=== PATIENT | female | born 1970 | race Hispanic/Latino ===

== ENCOUNTER 2020-08-06 14:49 | Inpatient (IN) ==
--- NOTE | 2020-08-06 15:49 | XRay Report ---
INDICATION: fever cough TECHNIQUE: AP portable semiupright chest x-ray COMPARISON: None FINDINGS: Lungs:There are bilateral patchy infiltrates. Findings are nonspecific but atypical pneumonia including Covid should be considered. No parenchymal consolidation. Heart, vascular:Mild cardiac enlargement. No evidence for congestive heart failure Mediastinum, clive:No mediastinal widening. No hilar mass Pleura:No pleural fluid. No pleural-based mass or calcification Skeletal:Negative. IMPRESSION: 1. Bilateral patchy interstitial infiltrates consistent with pneumonia 2. No parenchymal consolidation or evidence for pleural fluid Interpreted and Authenticated by: Manan Garcia 08/06/20
[2020-08-06] MEDS ORDERED: 0.9 % SODIUM CHLORIDE 500 ML IV ONE (15:51)
[2020-08-06] MEDS ORDERED: AZITHROMYCIN 500 MG in DEXTROSE 5% IN WATER 250 ML IV ONE (16:03)
--- NOTE | 2020-08-06 16:03 | Emergency Department Note ---
HPI General Chief complaint: Cold/Flu Symptoms Stated complaint: cough / SOB Time Seen by Provider: 08/06/20 15:21 Source: patient Mode of arrival: ambulatory Limitations: language barrier History of Present Illness HPI Narrative: Narrative: 60-year-old female been sick for the last 10 days with cough congestion fever. Now worsening trouble breathing. No nausea vomiting diarrhea. Denies Covid exposure but she is hypoxic now She speaks only Urdu but her is here and he translates for her Related Data Home Medications Medication Instructions Recorded Confirmed No Known Home Meds 08/06/20 08/06/20 Allergies Allergy/AdvReac Type Severity Reaction Status Date / Time No Known Drug Allergies Allergy Unverified 08/06/20 14:50 Review of Systems ROS ROS Narrative: Narrative: All systems ED: reviewed and negative except as stated. [facility] Narrative Patient History Narrative: Narrative: Medical/Surgical/Family History All Active Problems (Updated 08/06/20 @ 20:06 by Srinivas Teixeira MD) Pneumonia due to 2019 novel coronavirus (Acute) Respiratory failure with hypoxia (Acute) Surgical History (Updated 08/06/20 @ 20:02 by Srinivas Teixeira MD) History of cholecystectomy (Acute) Social History Smoking Status: Never smoker Exam Narrative Narrative: Narrative: Obese female some respiratory distress but she is doing well on nasal cannula oxygen. Normocephalic atraumatic. Conjunctive are clear sclerae white nonicteric. Oropharynx pink and moist. No nasal discharge. Neck is supple without lymphadenopathy or thyromegaly. Heart is regular rate and rhythm no murmur appreciated. Lungs with coarse sounds bilaterally but secondary to body habitus I am unable to hear significant rales. She is mildly tachypneic with talking. Currently febrile. Abdomen soft nontender nondistended. No pedal edema General Limitations: language barrier Course Vital Signs Vital signs: Vital Signs Temperature 101.0 F H 08/06/20 14:51 Pulse Rate 86 08/06/20 14:51 Respiratory Rate 14 08/06/20 14:51 Blood Pressure 128/75 08/06/20 14:51 Pulse Oximetry (%) 82 L 08/06/20 14:51 Temperature 97.7 F 08/06/20 18:24 Pulse Rate 80 08/06/20 18:16 Respiratory Rate 20 08/06/20 18:16 Blood Pressure 112/75 08/06/20 18:16 Pulse Oximetry (%) 94 08/06/20 18:16 MDM MDM Narrative Medical decision making narrative: Narrative: Likely Covid pneumonia given presentation but other things in the differential include influenza other bacterial versus viral pneumonia other infectious disease processes. Ordered x-ray laboratory and Covid testing Chest x-ray consistent with Covid. Covid swab confirms. Influenza is negative ABG shows 7.46 with normal PCO2 P O2 low decrease to 61. This is on 2 L Discussed with patient and her as well as with hospitalist, Dr. Singh. We will bring her in the hospital as she is requiring oxygen now. Start remdesivir and some Solu-Medrol Lab Data Lab results reviewed: Yes I reviewed the patient's lab results. Result diagrams: 08/06/20 16:08 08/06/20 16:08 Labs: Lab Results 08/06/20 08/06/20 08/06/20 Range/Units 16:08 16:08 16:08 WBC 7.0 (4.5-11.0) K/mcL RBC 5.05 (4.00-5.20) M/mcL Hgb 14.3 (12.0-15.0) g/dL Hct 44.6 (36.0-48.0) % MCV 88.3 (80.0-100.0) fL MCH 28.3 (26.0-34.0) pg MCHC 32.1 (31.0-36.0) g/dL RDW 13.2 (11.5-14.5) % Plt Count 197 (140-440) K/mcL MPV 10.2 (7.4-10.4) fL Neut % (Auto) 75.0 (38.0-78.0) % Lymph % (Auto) 19.5 (15.0-49.0) % [place] % (Auto) 4.7 (1.0-12.0) % Eos % (Auto) 0.7 (0.0-7.0) % Baso % (Auto) 0.1 (0.0-2.0) % Lymph # (Auto) 1.37 L (1.50-4.80) K/mcL [place] # (Auto) 0.33 (0.10-0.90) K/mcL Eos # (Auto) 0.05 (0.00-0.70) K/mcL Baso # (Auto) 0.01 (0.00-0.20) K/mcL Absolute Neutrophils 5.28 (1.80-8.00) K/mcL VBG Lactic Acid 1.3 (0.5-2.0) mmol/L Sodium 139 (133-145) mmol/L Potassium 4.5 (3.3-5.1) mmol/L Chloride 102 (96-108) mmol/L Carbon Dioxide 19 L (22-30) mmol/L Anion Gap 18.0 H (8.0-16.0) BUN 12 (8-23) mg/dL Creatinine 0.9 (0.6-1.1) mg/dL GFR Calculation 69 Glucose 143 H (70-105) mg/dL Calcium 8.9 (8.6-10.4) mg/dL Magnesium 2.3 (1.6-2.5) mg/dL Total Bilirubin 0.4 (0.1-1.0) mg/dL AST 47 H (<32) U/L ALT 21 (<40) U/L Alkaline Phosphatase 58 (39-117) U/L Troponin T (<0.03) ng/mL NT-Pro-B Natriuret Pep 47.9 (<125.0) pg/mL Total Protein 7.4 (5.9-8.4) gm/dL Albumin 3.7 (3.2-5.2) gm/dL Globulin 3.7 (2.2-3.7) gm/dL Albumin/Globulin Ratio 1.0 (1.0-2.3) Lipase 25 (7-60) U/L Procalcitonin (<0.10) ng/mL 08/06/20 08/06/20 Range/Units 16:08 16:08 WBC (4.5-11.0) K/mcL RBC (4.00-5.20) M/mcL Hgb (12.0-15.0) g/dL Hct (36.0-48.0) % MCV (80.0-100.0) fL MCH (26.0-34.0) pg MCHC (31.0-36.0) g/dL RDW (11.5-14.5) % Plt Count (140-440) K/mcL MPV (7.4-10.4) fL Neut % (Auto) (38.0-78.0) % Lymph % (Auto) (15.0-49.0) % [place] % (Auto) (1.0-12.0) % Eos % (Auto) (0.0-7.0) % Baso % (Auto) (0.0-2.0) % Lymph # (Auto) (1.50-4.80) K/mcL [place] # (Auto) (0.10-0.90) K/mcL Eos # (Auto) (0.00-0.70) K/mcL Baso # (Auto) (0.00-0.20) K/mcL Absolute Neutrophils (1.80-8.00) K/mcL VBG Lactic Acid (0.5-2.0) mmol/L Sodium (133-145) mmol/L Potassium (3.3-5.1) mmol/L Chloride (96-108) mmol/L Carbon Dioxide (22-30) mmol/L Anion Gap (8.0-16.0) BUN (8-23) mg/dL Creatinine (0.6-1.1) mg/dL GFR Calculation Glucose (70-105) mg/dL Calcium (8.6-10.4) mg/dL Magnesium (1.6-2.5) mg/dL Total Bilirubin (0.1-1.0) mg/dL AST (<32) U/L ALT (<40) U/L Alkaline Phosphatase (39-117) U/L Troponin T < 0.01 (<0.03) ng/mL NT-Pro-B Natriuret Pep (<125.0) pg/mL Total Protein (5.9-8.4) gm/dL Albumin (3.2-5.2) gm/dL Globulin (2.2-3.7) gm/dL Albumin/Globulin Ratio (1.0-2.3) Lipase (7-60) U/L Procalcitonin 0.09 (<0.10) ng/mL Radiology Data Radiology results reviewed: Yes I reviewed the patient's radiology results. Radiology results narrative: Chest x-ray 1 view shows atypical pneumonia, likely COVID Discharge Plan Patient/Caregiver Discharge Instructions Pt seen by DESIGNER/WRITER/PA only: No Clinical Impression: Pneumonia due to 2019 novel coronavirus, Respiratory failure with hypoxia Patient Disposition: Xfer As Inpt ([facility]) Condition: Serious Follow up with: No,PCP [Primary Care Provider] - Prescriptions: No Action No Known Home Meds RF: 0
[2020-08-06] MEDS ORDERED: ACETAMINOPHEN 325 MG TABLET PO ONE (16:23)
[2020-08-06 16:52] LABS: Basophils # (Auto) 0.01 K/mcL (0.00-0.20); Basophils % (Auto) 0.1 % (0.0-2.0); Eosinophils # (Auto) 0.05 K/mcL (0.00-0.70); Eosinophils % (Auto) 0.7 % (0.0-7.0); Hematocrit 44.6 % (36.0-48.0); Hemoglobin 14.3 g/dL (12.0-15.0); Lymphocytes # (Auto) 1.37 K/mcL (1.50-4.80); Lymphocytes % (Auto) 19.5 % (15.0-49.0); Mean Cell Volume 88.3 fL (80.0-100.0); Mean Corpuscular HGB Conc 32.1 g/dL (31.0-36.0); Mean Platelet Volume 10.2 fL (7.4-10.4); Monocytes # (Auto) 0.33 K/mcL (0.10-0.90); Monocytes % (Auto) 4.7 % (1.0-12.0); Platelet Count 197 K/mcL (140-440); RBC 5.05 M/mcL (4.00-5.20); Red Cell Distribution Width 13.2 % (11.5-14.5)
[2020-08-06] MEDS ORDERED: methylPREDNISolone SOD SUCC 125 MG/2 ML VIAL IV ONE (17:59)
[2020-08-06] MEDS ORDERED: REMDESIVIR 200 MG in 0.9 % SODIUM CHLORIDE 250 ML IV ONE (17:59)
--- NOTE | 2020-08-06 18:16 | Internal Med History&Physical ---
HPI History of Present Illness Patient information: Note initiated : 08/06/20 at 6:16 pm Service Date, if different from initiated Date: [] Patient: Roseline Giron a 60 y/o F admitted on for cough / SOB. Chief Complaint: History of present illness: Ms. Giron is a 60 year old F lady otherwise fairly healthy who presents with 10 days onset of worsening body ache, shortness of breath weakness that has progressed with upper respiratory symptoms to the point that she is unable to exert herself. She was evaluated in the ER today with above symptoms. She is accompanied with her family. Most of the history is obtained from her Derrell as patient is unable to speak Mexican. Initial work-up in the ER was consistent with bilateral chest infiltrates highly suggestive of Covid pneumonia. Patient is requiring 4 L oxygen and was pr ofoundly tachypneic. Covid test was ordered. Hospital service was consulted At the time of my evaluation patient is accompanied with her Derrell. He was able to answer most of the questions. He endorses history as above. Patient is South Korean-speaking only so was not able to provide answers however she would confer with her for translation. She denies diarrhea, shaking chills, joint pain or rash or mental status changes. ABG/imaging and other studies was reviewed with . Due to profound respiratory distress patient be started on noninvasive ventilation along with remdesivir/steroids. Review of systems 10 point review system was performed and is negative except for ones cussed above PFSH PFSH All Active Problems (Updated 08/06/20 @ 20:06 by Srinivas Teixeira MD) Pneumonia due to 2019 novel coronavirus (Acute) Respiratory failure with hypoxia (Acute) Surgical History (Updated 08/06/20 @ 20:02 by Srinivas Teixeira MD) History of cholecystectomy (Acute) Social History smoking status: Never smoker MEDS/ALLERGIES Home Medications and Allergies Home Medications Medication Instructions Recorded Confirmed Type No Known Home Meds 08/06/20 08/06/20 History Allergies Allergy/AdvReac Type Severity Reaction Status Date / Time No Known Drug Allergies Allergy Verified 08/06/20 23:04 EXAM Constitutional Vitals: Temp Pulse Resp BP Pulse Ox 101.4 F H 80 25 H 124/80 93 08/06/20 16:47 08/06/20 17:01 08/06/20 17:01 08/06/20 17:01 08/06/20 17:01 Obese, alert, tachypneic Head normocephalic Oral cavity moist No ear nose discharge Eye movement symmetrical Neck supple no lymphadenopathy S1-S2 regular Labored breathing on 4 L oxygen, tachypneic Nondistended nontender abdomen Lower extremity no cyanosis clubbing or joint swelling Skin no suspicious lesion Psych anxious Neuro moving all 4 extremities DATA Data Completed and Pending Labs: Labs from last 24 hours 08/06/20 08/06/20 08/06/20 16:08 16:08 16:08 WBC RBC Hgb Hct MCV MCH MCHC RDW Plt Count MPV Neut % (Auto) Lymph % (Auto) [place] % (Auto) Eos % (Auto) Baso % (Auto) Lymph # (Auto) [place] # (Auto) Eos # (Auto) Baso # (Auto) Absolute Neutrophils VBG Lactic Acid 1.3 Sodium Potassium Chloride Carbon Dioxide Anion Gap BUN Creatinine GFR Calculation Glucose Calcium Magnesium Total Bilirubin AST ALT Alkaline Phosphatase Troponin T < 0.01 NT-Pro-B Natriuret Pep Total Protein Albumin Globulin Albumin/Globulin Ratio Lipase Procalcitonin 0.09 08/06/20 08/06/20 16:08 16:08 WBC 7.0 RBC 5.05 Hgb 14.3 Hct 44.6 MCV 88.3 MCH 28.3 MCHC 32.1 RDW 13.2 Plt Count 197 MPV 10.2 Neut % (Auto) 75.0 Lymph % (Auto) 19.5 [place] % (Auto) 4.7 Eos % (Auto) 0.7 Baso % (Auto) 0.1 Lymph # (Auto) 1.37 L [place] # (Auto) 0.33 Eos # (Auto) 0.05 Baso # (Auto) 0.01 Absolute Neutrophils 5.28 VBG Lactic Acid Sodium Pending Potassium Pending Chloride Pending Carbon Dioxide Pending Anion Gap Pending BUN Pending Creatinine Pending GFR Calculation Pending Glucose Pending Calcium Pending Magnesium Pending Total Bilirubin Pending AST Pending ALT Pending Alkaline Phosphatase Pending Troponin T NT-Pro-B Natriuret Pep Pending Total Protein Pending Albumin Pending Globulin Pending Albumin/Globulin Ratio Pending Lipase Pending Procalcitonin A/P Narrative A/P Narrative: * Multifocal pneumonia likely COVID-19. Covid testing pending. Continue contact precautions . Start remdesivir/dexamethasone. Continue supportive management * Hypoxic respiratory failure secondary to pneumonia. Supplemental oxygen/noninvasive ventilation/pulmonary toilet/self proning * Obesity-continue directed therapy/nutrition support * Full code * Prophylaxis heparin Plan * Inpatient ICU admission with Covid pneumonia and noninvasive ventilation * supplemental oxygen/noninvasive ventilation * Serial blood gas/chest imaging * Dexamethasone/remdesivir * Serial D-dimer/procalcitonin * DVT prophylaxis Time Spent With Patient Time: Total time spent is greater than 50% in coordination of care (as documented) at patient's floor/unit and/or counseling patient:
[2020-08-06 18:19] LABS: ALT/SGPT 21 U/L (<40); AST/SGOT 47 U/L (<32); Albumin 3.7 gm/dL (3.2-5.2); Alkaline Phosphatase 58 U/L (39-117); Bilirubin,Total 0.4 mg/dL (0.1-1.0); Blood Urea Nitrogen 12 mg/dL (8-23); Calcium 8.9 mg/dL (8.6-10.4); Carbon Dioxide 19 mmol/L (22-30); Chloride 102 mmol/L (96-108); Globulin 3.7 gm/dL (2.2-3.7); Glomerular Filtration Rate 69; Glucose 143 mg/dL (70-105); proBNP 47.9 pg/mL (<125.0)
[2020-08-06] MEDS ORDERED: 0.9 % SODIUM CHLORIDE 1,000 ML IV ONE (18:23)
[2020-08-06 21:59] LABS: Appearance,Urine CLEAR (Clear); Bilirubin,Urine Negative (Negative); Color,Urine STRAW; Culture Indicated,Urine No; Glucose,Urine (UA) Negative (Negative); Ketones,Urine Negative (Negative); Leukocyte Esterase,Urine Negative /ug (Negative); Nitrate,Urine Negative (Negative); Protein,Urine Negative (Negative); Specific Gravity,Urine 1.005 (1.000-1.035); Urine Blood Negative (Negative); Urobilinogen,Urine Negative
[2020-08-06] MEDS ORDERED: METOPROLOL TARTRATE 5 MG/5 ML VIAL IV PRN (21:59)
[2020-08-06] MEDS ORDERED: ACETAMINOPHEN 650 MG/65 ML BOTTLE IV PRN (21:59)
[2020-08-06] MEDS ORDERED: BISACODYL 10 MG SUPP.RECT PR PRN (21:59)
[2020-08-06] MEDS ORDERED: POLYETHYLENE GLYCOL 3350 17 GM PACKET PO PRN (21:59)
[2020-08-06] MEDS ORDERED: guaiFENesin/CODEINE 10 ML UDC PO PRN (21:59)
[2020-08-06] MEDS ORDERED: ONDANSETRON 4 MG ODT TABLET SL PRN (21:59)
[2020-08-06] MEDS ORDERED: REMDESIVIR 100 MG in 0.9 % SODIUM CHLORIDE 250 ML IV SCH (21:59)
[2020-08-06] MEDS ORDERED: POTASSIUM CHLORIDE 40 MEQ in DEXTROSE 5% IN WATER 500 ML IV PRN (21:59)
[2020-08-06] MEDS ORDERED: ONDANSETRON 4 MG/2 ML VIAL IV PRN (21:59)
[2020-08-06] MEDS ORDERED: POTASSIUM CHLORIDE 20 MEQ PACKET PO PRN (21:59)
[2020-08-06] MEDS ORDERED: ACETAMINOPHEN 325 MG TABLET PO PRN (21:59)
[2020-08-06] MEDS ORDERED: MELATONIN 3 MG TABLET PO PRN (21:59)
[2020-08-06] MEDS ORDERED: IPRATROPIUM/ALBUTEROL 3 ML AMPUL.NEB NEB PRN (21:59)
[2020-08-06] MEDS ORDERED: MAGNESIUM SULFATE 2 GM/50 ML BAG IV PRN (21:59)
[2020-08-06] MEDS ORDERED: hydrALAZINE 20 MG/ML VIAL IV PRN (21:59)
[2020-08-06] MEDS: 0.9 % SODIUM CHLORIDE 10 ML SYRINGE IV SCH (22:10)
[2020-08-06] MEDS: 0.9 % SODIUM CHLORIDE 1,000 ML IV SCH (22:10)
[2020-08-06] MEDS: DOCUSATE SODIUM 100 MG CAPSULE PO SCH (23:26)
[2020-08-06] MEDS: SENNOSIDES/DOCUSATE SODIUM 1 TAB TABLET PO SCH (23:26)
[2020-08-06] MEDS: HEPARIN 5,000 UNIT/ML VIAL SQ SCH (23:29)
[2020-08-07] MEDS: 0.9 % SODIUM CHLORIDE 10 ML SYRINGE IV SCH ×3 (05:15→22:39)
[2020-08-07 07:16] LABS: ALT/SGPT 23 U/L (<40); AST/SGOT 44 U/L (<32); Albumin 3.8 gm/dL (3.2-5.2); Albumin/Globulin Ratio 1.1 (1.0-2.3); Alkaline Phosphatase 59 U/L (39-117); Bilirubin,Direct < 0.2 mg/dL (<0.3); Bilirubin,Total 0.3 mg/dL (0.1-1.0); Blood Urea Nitrogen 11 mg/dL (6-20); Calcium 8.6 mg/dL (8.6-10.4); Carbon Dioxide 24 mmol/L (22-30); Chloride 104 mmol/L (96-108); Globulin 3.4 gm/dL (2.2-3.7); Glomerular Filtration Rate 100; Glucose 258 mg/dL (70-105); Lactate Dehydrogenase 339 U/L (135-225); Phosphorous 3.6 mg/dL (2.5-4.5); Triglycerides 82 mg/dL (<150); Uric Acid 5.5 mg/dL (2.5-8.0)
[2020-08-07 08:17] LABS: Band Neutrophils % 5 % (0-10); Hematocrit 43.1 % (36.0-48.0); Lymphocytes % 9 % (15-49); Mean Cell Volume 86.2 fL (80.0-100.0); Mean Corpuscular HGB Conc 32.5 g/dL (31.0-36.0); Mean Platelet Volume 10.4 fL (7.4-10.4); Monocytes % (Manual) 1 % (1-12); Platelet Count 223 K/mcL (140-440); Platelet Estimate NORMAL (Normal); RBC Morphology NORMAL (Normal); Reactive Lymphocytes 8 % (0-2); Red Cell Distribution Width 13.1 % (11.5-14.5); Segmented Neutrophils % 77 % (38-78); WBC 3.9 K/mcL (4.5-11.0)
[2020-08-07] MEDS: MULTIVIT,THER IRON,CA,FA & MIN 1 TABLET PO SCH (08:24)
[2020-08-07] MEDS: DEXAMETHASONE 4 MG TABLET PO SCH (08:24)
[2020-08-07] MEDS: HEPARIN 5,000 UNIT/ML VIAL SQ SCH ×2 (08:24→21:13)
[2020-08-07] MEDS: DOCUSATE SODIUM 100 MG CAPSULE PO SCH ×2 (08:24→21:13)
[2020-08-07] MEDS: TIOTROPIUM BROMIDE 18 MCG INHALANT INH SCH (08:28)
[2020-08-07] MEDS: REMDESIVIR 100 MG in 0.9 % SODIUM CHLORIDE 250 ML IV SCH (09:17)
--- NOTE | 2020-08-07 12:24 | Internal Med Progress Note ---
SUBJECTIVE Subjective Patient information: Note initiated : 08/07/20 at 12:22 pm Service Date, if different from initiated Date: [] Patient: Roseline Giorn 50 y/o F admitted on 08/06/20 for cough / SOB. Chief Complaint: Ms. Giron is a 60 year old F lady otherwise fairly healthy who pr esents with 10 days onset of worsening body ache, shortness of breath weakness that has progressed with upper respiratory symptoms to the point that she is unable to exert herself. She was evaluated in the ER today with above symptoms. She is accompanied with her family. Most of the history is obtained from her Derrell as patient is unable to speak Cypriot. Initial work-up in the ER was consistent with bilateral chest infiltrates highly suggestive of Covid pneumonia. Patient is requiring 4 L oxygen and was profoundly tachypneic. Covid test was ordered. Hospital service was consulted At the time of my evaluation patient is accompanied with her Derrell. He was able to answer most of the questions. He endorses history as above. Patient is [place]uran-speaking only so was not able to provide answers however she would confer with her for translation. She denies diarrhea, shaking chills, joint pain or rash or mental status changes. ABG/imaging and other studies was reviewed with . Due to profound respiratory distress patient be started on noninvasive ventilation along with remdesivir/steroids. 08/07-patient continuing on remdesivir/steroid. Overnight on BiPAP doing a lot better. This morning now on 4 L oxygen. No telemetry events. at beds roney. Discussed treatment plan. Covid positive. Continue contact the questions. Constitutional Vitals: Vital Signs Temp Pulse Resp BP Pulse Ox 97.2 F 73 19 133/89 93 08/07/20 04:45 08/07/20 12:07 08/07/20 12:07 08/07/20 12:01 08/07/20 12:07 Period Temp Pulse Resp BP Sys/Akbar Pulse Ox Last 24 Hr 96.9 F-101.4 F 62-87 13-42 90-140/58-89 82-99 Intake and Output 08/06/20 08/07/20 08/07/20 21:59 05:59 13:59 Intake Total 1999 480 250 Output Total 925 400 Balance 1999445 -150 Weight 130.805 kg Alert Anxious Minimal labored breathing on full dose oxygen No telemetry events Intake & Output: Intake & Output 08/06/20 08/07/20 08/07/20 21:59 05:59 13:59 Intake Total 1999 480 250 Output Total 925 400 Balance 1999445 -150 Weight 130.805 kg Intake: IV 1999 250 Sodium Chloride 0.9% 1,000 ml @ 1000 Wide Open IV BOLUS ONE Rx#: [id number] Sodium Chloride 0.9% 500 ml @ 500 Wide Open IV .Q0M ONE Rx#: [id number] Zithromax 500 mg In Dextrose 5% 250 in Water 250 ml @ 250 mls/hr IV ONCE ONE Rx#:[id number] Veklury 100 mg In Sodium 250 250 Chloride 0.9% 250 ml @ 500 mls/ hr IV DAILY [facility] Rx#:[id number] Oral 480 Output: Void Amount 925 400 Other: Urine Appearance Clear Clear Urine Color Bright Yellow Dark Jennifer Urine Odor Normal OBJ DATA Labs CBC & Chem 7: 08/07/20 05:20 08/07/20 05:20 Labs: Abnormal Lab Results 08/07/20 08/07/20 08/07/20 05:20 05:20 05:20 WBC 3.9 L Lymph # (Auto) Lymphocytes % 9 L Reactive Lymphocytes 8 H D-Dimer 0.94 H Carbon Dioxide Anion Gap Glucose 258 H GGT 109 H AST 44 H Lactate Dehydrogenase 339 H Procalcitonin 08/06/20 08/06/20 08/06/20 22:20 22:20 16:08 WBC Lymph # (Auto) Lymphocytes % Reactive Lymphocytes D-Dimer 0.87 H Carbon Dioxide 19 L Anion Gap 18.0 H Glucose 143 H GGT AST 47 H Lactate Dehydrogenase Procalcitonin 0.10 H 08/06/20 16:08 WBC Lymph # (Auto) 1.37 L Lymphocytes % Reactive Lymphocytes D-Dimer Carbon Dioxide Anion Gap Glucose GGT AST Lactate Dehydrogenase Procalcitonin Meds: Medications Acetaminophen (Tylenol) 650 mg PO Q4-6HP PRN; Protocol PRN Reason: Per Pain Protocol/Fever > 101 Albuterol/Ipratropium (Duoneb) 3 ml NEB Q4HP PRN PRN Reason: Shortness Of Breath Bisacodyl (Dulcolax) 10 mg MI Q2-3DAYS PRN PRN Reason: Constipation Dexamethasone (Decadron) 6 mg PO DAILY [facility] Last Admin: 08/07/20 08:24 Dose: 6 mg Documented by: Docusate Sodium (Colace) 100 mg PO BID [facility] Last Admin: 08/07/20 08:24 Dose: 100 mg Documented by: Guaifenesin/Codeine Phosphate (Robitussin Ac) 10 ml PO Q4HP PRN PRN Reason: Cough Heparin Sodium (Porcine) (Heparin) 5,000 unit SQ Q12 [facility] Last Admin: 08/07/20 08:24 Dose: 5,000 unit Documented by: Hydralazine HCl (Apresoline) 10 mg IV Q4-6HP PRN PRN Reason: Hypertension Potassium Chloride 40 meq/ (Dextrose) 520 mls @ 130 mls/hr IV UD PRN PRN Reason: K+ = or < 3.5 Acetaminophen (Ofirmev) 650 mg in 65 mls @ 130 mls/hr IV Q6HP PRN; Protocol PRN Reason: Per Pain Protocol/Fever > 101 Magnesium Sulfate (Magnesium Sulfate) 2 gm in 50 mls @ 50 mls/hr IV UD PRN PRN Reason: MG = or < 1.7 Sodium Chloride (Sodium Chloride 0.9%) 1,000 mls @ 50 mls/hr IV .Q20H [facility] Stop: 08/09/20 09:58 Last Admin: 08/06/20 22:10 Dose: 50 mls/hr Documented by: REMDESIVIR 100 mg/ Sodium (Chloride) 250 mls @ 500 mls/hr IV DAILY [facility] Stop: 08/10/20 09:29 Last Infusion: 08/07/20 10:00 Dose: Infused Documented by: Iron Carb/Multivit/[place]/Folic Acid (Multivitamin W/Minerals) 1 tab PO DAILY [facility] Last Admin: 08/07/20 08:24 Dose: 1 tab Documented by: Melatonin (Melatonin 3mg Tablet) 3 mg PO HSP PRN PRN Reason: Insomnia Metoprolol Tartrate (Lopressor) 5 mg IV Q5M PRN PRN Reason: Heart Rate > 140 bpm Ondansetron HCl (Zofran Odt) 4 mg SL Q4-6HP PRN; Protocol PRN Reason: Nausea And Vomiting Ondansetron HCl (Zofran) 4 mg IV Q4-6HP PRN; Protocol PRN Reason: Nausea And Vomiting Polyethylene Glycol (Miralax) 17 gm PO DAILYP PRN PRN Reason: Constipation Potassium Chloride (Klor-Con) 40 meq PO DAILYP PRN PRN Reason: K+ < 3.5 Senna/Docusate Sodium (Senna Plus Tablet) 1 tab PO HS [facility] Last Admin: 08/06/20 23:26 Dose: Not Given Documented by: Sodium Chloride (Saline Flush) 10 ml IV Q8 [facility] Last Admin: 08/07/20 05:15 Dose: Not Given Documented by: Tiotropium [place] (Spiriva) 18 mcg INH DAILY [facility] Last Admin: 08/07/20 08:28 Dose: Not Given Documented by: A/P Narrative A/P Narrative: * Multifocal pneumonia likely COVID-19. Covid testing pending. Continue cont act precautions . Start remdesivir/dexamethasone. Continue supportive management * Hypoxic respiratory failure -feeling a lot better on noninvasive ventilation. Continue supplemental oxygen/noninvasive ventilation weaning/pulmonary toilet/self proning * Obesity-continue directed therapy/nutrition support * Full code * Prophylaxis heparin Plan * Wean noninvasive ventilation as tolerated * Remdesivir/dexamethasone * Serial blood gas/chest imaging * DVT prophylaxis Time Spent With Patient Time: Total time spent is greater than 50% in coordination of care (as documented) at patient's floor/unit and/or counseling patient: QUALITY VTE Deep Vein Thrombosis/Pulmonary Embolism Present on Admission: No
[2020-08-07] MEDS: 0.9 % SODIUM CHLORIDE 1,000 ML IV SCH (17:30)
[2020-08-07] MEDS: SENNOSIDES/DOCUSATE SODIUM 1 TAB TABLET PO SCH (21:13)
[2020-08-08] MEDS: 0.9 % SODIUM CHLORIDE 10 ML SYRINGE IV SCH ×2 (04:52→12:52)
--- NOTE | 2020-08-08 08:16 | XRay Report ---
INDICATION: Interval Change TECHNIQUE: AP portable upright chest x-ray COMPARISON: Previous examination dated 08/06/2020 FINDINGS:Suboptimal evaluation due to patient's large size Lungs:Bilateral infiltrates remain present. When allowances are made for differences in technique there has been no definite interval change. Appearance remains consistent with pneumonia and Covid should be considered Heart, vascular:No significant cardiomegaly. Pulmonary vascularity is normal. No pulmonary edema or pulmonary congestion Mediastinum, clive:No mediastinal widening. No hilar mass Pleura:No pleural fluid. No pleural-based mass or calcification Skeletal:Negative. IMPRESSION: 1. Bilateral parenchymal infiltrates 2. No interval change Interpreted and Authenticated by: Manan Garcia 08/08/20
[2020-08-08] MEDS: DEXAMETHASONE 4 MG TABLET PO SCH (09:25)
[2020-08-08] MEDS: DOCUSATE SODIUM 100 MG CAPSULE PO SCH (09:25)
[2020-08-08] MEDS: TIOTROPIUM BROMIDE 18 MCG INHALANT INH SCH (09:26)
[2020-08-08] MEDS: MULTIVIT,THER IRON,CA,FA & MIN 1 TABLET PO SCH (09:26)
[2020-08-08] MEDS: HEPARIN 5,000 UNIT/ML VIAL SQ SCH (09:26)
[2020-08-08 09:31] LABS: ALT/SGPT 23 U/L (<40); AST/SGOT 31 U/L (<32); Albumin 3.5 gm/dL (3.2-5.2); Albumin/Globulin Ratio 1.1 (1.0-2.3); Alkaline Phosphatase 58 U/L (39-117); Bilirubin,Direct < 0.2 mg/dL (<0.3); Bilirubin,Total 0.3 mg/dL (0.1-1.0); Blood Urea Nitrogen 14 mg/dL (6-20); Calcium 8.8 mg/dL (8.6-10.4); Carbon Dioxide 26 mmol/L (22-30); Chloride 103 mmol/L (96-108); Globulin 3.1 gm/dL (2.2-3.7); Glomerular Filtration Rate 105; Glucose 181 mg/dL (70-105); Lactate Dehydrogenase 319 U/L (135-225); Phosphorous 2.8 mg/dL (2.5-4.5); Triglycerides 96 mg/dL (<150); Uric Acid 4.7 mg/dL (2.5-8.0)
[2020-08-08 09:59] LABS: Hematocrit 43.1 % (36.0-48.0); Hemoglobin 13.7 g/dL (12.0-15.0); Lymphocytes % 8 % (15-49); Mean Cell Volume 87.6 fL (80.0-100.0); Mean Corpuscular HGB Conc 31.8 g/dL (31.0-36.0); Mean Platelet Volume 10.7 fL (7.4-10.4); Monocytes % (Manual) 4 % (1-12); Platelet Count 278 K/mcL (140-440); Platelet Estimate NORMAL (Normal); RBC 4.92 M/mcL (4.00-5.20); RBC Morphology NORMAL (Normal); Reactive Lymphocytes 2 % (0-2); Segmented Neutrophils % 86 % (38-78)
[2020-08-08] MEDS ORDERED: AZITHROMYCIN 500 MG in DEXTROSE 5% IN WATER 250 ML IV SCH (10:00)
[2020-08-08] MEDS: REMDESIVIR 100 MG in 0.9 % SODIUM CHLORIDE 250 ML IV SCH (10:47)
[2020-08-08] MEDS ORDERED: cefTRIAXone 2 GM in DEXTROSE 5% IN WATER 50 ML IV SCH (11:00)
--- NOTE | 2020-08-08 11:50 | Internal Med Progress Note ---
SUBJECTIVE Subjective Patient information: Note initiated : 08/08/20 at 11:44 am Service Date, if different from initiated Date: [] Patient: Roseline Giron 50 y/o F admitted on 08/06/20 for cough / SOB. Chief Complaint: Interval history: Ms. Giron is a 60 year old F lady otherwise fairly healthy who presents with 10 days onset of worsening body ache, shortness of breath weakness that has progressed with upper respiratory symptoms to the point that she is unable to exert herself. She was evaluated in the ER today with above symptoms. She is accompanied with her family. Most of the history is obtained from her Derrell as patient is unable to speak [place]. Initial work-up in the ER was consistent with bilateral chest infiltrates highly suggestive of Covid pneumonia. Patient is requiring 4 L oxygen and was profoundly tachypneic. Covid test was ordered. Hospital service was consulted At the time of my evaluation patient is accompanied with her Derrell. He was able to answer most of the questions. He endorses history as above. Patient is [place]-speaking only so was not able to provide answers however she would confer with her for translation. She denies diarrhea, shaking chills, joint pain or rash or mental status changes. ABG/imaging and other studies was reviewed with . Due to profound respiratory distress patient be started on noninvasive ventilation along with remdesivir/steroids. 08/07-patient continuing on remdesivir/steroid. Overnight on BiPAP doing a lot better. This morning now on 4 L oxygen. No telemetry events. at bedside. Discussed treatment plan. Covid positive. Continue contact the questions. 08/08-patient clinically deteriorating. Now on 50% FiO2 BiPAP. Morbidly obese with a BMI over 49. High risk for thrombotic complications. Started on Lovenox twice daily and rise of rising D-dimer. Continuing remdesivir/steroids. Will attempt to transfer to tertiary center for further critical care management Constitutional Vitals: Vital Signs Temp Pulse Resp BP Pulse Ox 97.3 F 64 17 122/80 94 08/08/20 07:39 08/08/20 11:05 08/08/20 11:05 08/08/20 10:01 08/08/20 11:05 Period Temp Pulse Resp BP Sys/Akbar Pulse Ox Last 24 Hr 97.3 F-98.4 F 59-88 109-144/70-90 91-100 Intake and Output 08/07/20 08/08/20 08/08/20 22:59 05:59 13:59 Intake Total Output Total Balance Weight Alert morbidly obese Labored breathing On noninvasive ventilation No telemetry events Intake & Output: Intake & Output 08/07/20 08/08/20 08/08/20 22:59 05:59 13:59 Intake Total Output Total Balance Weight Intake: IV Sodium Chloride 0.9% 1,000 ml @ 50 mls/hr IV .Q20H [facility] Rx#: [id number] Oral Output: Void Amount Other: Meal Percent of Meal Consumed Urine Appearance Urine Color Bright Yellow Urine Odor Normal # Voids 200 OBJ DATA Labs CBC & Chem 7: 08/08/20 05:40 08/08/20 05:40 Labs: Abnormal Lab Results 08/08/20 08/08/20 08/07/20 05:40 05:40 05:20 WBC MPV 10.7 H Lymph # (Auto) Seg Neutrophils % 86 H Lymphocytes % 8 L Reactive Lymphocytes D-Dimer Carbon Dioxide Anion Gap Glucose 181 H 258 H GGT 103 H 109 H AST 44 H Lactate Dehydrogenase 319 H 339 H Procalcitonin 08/07/20 08/07/20 08/06/20 05:20 05:20 22:20 WBC 3.9 L MPV Lymph # (Auto) Seg Neutrophils % Lymphocytes % 9 L Reactive Lymphocytes 8 H D-Dimer 0.94 H Carbon Dioxide Anion Gap Glucose GGT AST Lactate Dehydrogenase Procalcitonin 0.10 H 08/06/20 08/06/20 08/06/20 22:20 16:08 16:08 WBC MPV Lymph # (Auto) 1.37 L Seg Neutrophils % Lymphocytes % Reactive Lymphocytes D-Dimer 0.87 H Carbon Dioxide 19 L Anion Gap 18.0 H Glucose 143 H GGT AST 47 H Lactate Dehydrogenase Procalcitonin Meds: Medications Acetaminophen (Tylenol) 650 mg PO Q4-6HP PRN; Protocol PRN Reason: Per Pain Protocol/Fever > 101 Albuterol/Ipratropium (Duoneb) 3 ml NEB Q4HP PRN PRN Reason: Shortness Of Breath Bisacodyl (Dulcolax) 10 mg [place] Q2-3DAYS PRN PRN Reason: Constipation Dexamethasone (Decadron) 6 mg PO DAILY [facility] Last Admin: 08/08/20 09:25 Dose: 6 mg Documented by: Docusate Sodium (Colace) 100 mg PO BID [facility] Last Admin: 08/08/20 09:25 Dose: 100 mg Documented by: Enoxaparin Sodium (Lovenox) 40 mg SQ BID [facility] Guaifenesin/Codeine Phosphate (Robitussin Ac) 10 ml PO Q4HP PRN PRN Reason: Cough Last Admin: 08/07/20 18:09 Dose: 10 ml Documented by: Hydralazine HCl (Apresoline) 10 mg IV Q4-6HP PRN PRN Reason: Hypertension Potassium Chloride 40 meq/ (Dextrose) 520 mls @ 130 mls/hr IV UD PRN PRN Reason: K+ = or < 3.5 Acetaminophen (Ofirmev) 650 mg in 65 mls @ 130 mls/hr IV Q6HP PRN; Protocol PRN Reason: Per Pain Protocol/Fever > 101 Magnesium Sulfate (Magnesium Sulfate) 2 gm in 50 mls @ 50 mls/hr IV UD PRN PRN Reason: MG = or < 1.7 Sodium Chloride (Sodium Chloride 0.9%) 1,000 mls @ 50 mls/hr IV .Q20H [facility] Stop: 08/09/20 09:58 Last Admin: 08/07/20 17:30 Dose: 50 mls/hr Documented by: REMDESIVIR 100 mg/ Sodium (Chloride) 250 mls @ 500 mls/hr IV DAILY [facility] Stop: 08/10/20 09:29 Last Admin: 08/08/20 10:47 Dose: 500 mls/hr Documented by: Ceftriaxone Sodium 2 gm/ (Dextrose) 50 mls @ 100 mls/hr IV DAILY [facility]; Protocol Azithromycin 500 mg/ Dextrose 250 mls @ 250 mls/hr IV DAILY@1000 TAYLOR; Protocol Stop: 08/10/20 10:59 Last Admin: 08/08/20 10:47 Dose: 250 mls/hr Documented by: Iron Carb/Multivit/Holt/Folic Acid (Multivitamin W/Minerals) 1 tab PO DAILY [facility] Last Admin: 08/08/20 09:26 Dose: 1 tab Documented by: Melatonin (Melatonin 3mg Tablet) 3 mg PO HSP PRN PRN Reason: Insomnia Metoprolol Tartrate (Lopressor) 5 mg IV Q5M PRN PRN Reason: Heart Rate > 140 bpm Ondansetron HCl (Zofran Odt) 4 mg SL Q4-6HP PRN; Protocol PRN Reason: Nausea And Vomiting Ondansetron HCl (Zofran) 4 mg IV Q4-6HP PRN; Protocol PRN Reason: Nausea And Vomiting Polyethylene Glycol (Miralax) 17 gm PO DAILYP PRN PRN Reason: Constipation Potassium Chloride (Klor-Con) 40 meq PO DAILYP PRN PRN Reason: K+ < 3.5 Senna/Docusate Sodium (Senna Plus Tablet) 1 tab PO HS [facility] Last Admin: 08/07/20 21:13 Dose: 1 tab Documented by: Sodium Chloride (Saline Flush) 10 ml IV Q8 [facility] Last Admin: 08/08/20 04:52 Dose: Not Given Documented by: Tiotropium [place] (Spiriva) 18 mcg INH DAILY [facility] Last Admin: 08/08/20 09:26 Dose: Not Given Documented by: A/P Narrative A/P Narrative: * COVID-19 multifocal pneumonia ,continue remdesivir/dexamethasone. Continue supportive management * Hypoxic respiratory failure -rapid clinica deterioration noted with worsening hypoxic respiratory failure now requiring noninvasive ventilation 50% FiO2. ABG 7.4 on 10 L high flow. Attempted transfer to tertiary center for further management. Worsening D-dimer, started on twice daily Lovenox for prevention of thrombotic complications. * Morbid obesity-continue directed therapy/nutrition support * Full code Plan * Noninvasive ventilation * Continue remdesivir/dexamethasone * Twice daily Lovenox * Serial blood gas/chest imaging * Attempted transfer to tertiary center Time Spent With Patient Time: Total time spent is greater than 50% in coordination of care (as doc umented) at patient's floor/unit and/or counseling patient: QUALITY VTE Deep Vein Thrombosis/Pulmonary Embolism Present on Admission: No
--- NOTE | 2020-08-08 13:31 | Transfer Summary ---
Discharge Provider Provider Patient information: Note initiated : 08/08/20 at 1:30 pm Service Date, if different from initiated Date: [] Patient: Roseline Giron 50 y/o F admitted on 08/06/20 for cough / SOB. Discharge diagnosis * COVID-19 multifocal pneumonia , managed on remdesivir day 3/dexamethasone. No availability of convalescent plasma. Ongoing supportive management * Hypoxic respiratory failure -rapid clinica deterioration noted with worsening hypoxic respiratory failure and interval chest imaging. Now requiring noninvasive ventilation ABG 7.4 on 10 L high flow this morning. Worsening D-dimer, started on twice daily Lovenox for prevention of thrombotic complications. BiPAP readjusted to 40% FiO2, 25/07 * Morbid obesity-continue directed therapy/nutrition support Brief hospital course Ms. Giron is a 60 year old F lady otherwise fairly healthy who presents with 10 days onset of worsening body ache, shortness of breath weakness that has progressed with upper respiratory symptoms to the point that she is unable to exert herself. She was evaluated in the ER today with above symptoms. She is accompanied with her family. Most of the history is obtained from her Derrell as patient is unable to speak [place]. Initial work-up in the ER was consistent with bilateral chest infiltrates highly suggestive of Covid pneumonia. Patient is requiring 4 L oxygen and was profoundly tachypneic. Covid test was ordered. Hospital service was consulted At the time of my evaluation patient is accompanied with her Derrell. He was able to answer most of the questions. He endorses history as above. Patient is [place] Citizen-speaking only so was not able to provide answers however she would confer with her for translation. She denies diarrhea, shaking chills, joint pain or rash or mental status changes. ABG/imaging and other studies was reviewed with . Due to profound respiratory distress patient be started on noninvasive ventilation along with remdesivir/steroids. 08/07-patient continuing on remdesivir/steroid. Overnight on BiPAP doing a lot better. This morning now on 4 L oxygen. No telemetry events. at bedside. Discussed treatment plan. Covid positive. Continue contact the questions. 08/08-patient clinically deteriorating. Now on 50% FiO2 BiPAP /. Morbidly obese with a BMI over 49. High risk for thrombotic complications. Started on Lovenox twice daily and rise of rising D-dimer. Continuing remdesivir/steroids. Will attempt to transfer to tertiary center for further critical care management. Case discussed with patient's about patient degenerating status. He is agreeable to transfer patient to tertiary center for further management. 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 Highly appreciate in accepting this patient for further management. Patient be transferred via air ambulance. Date of admission: 08/06/20 21:57 Discharge date: 08/08/20 Primary care physician: PCP No Consults: 08/06/20 Consult to Physician [CONS] Stat Comment: Consulting Provider: Joselito Singh Reason For Exam: Physician to Consult Discharge Meds Discharge Medications Home Medications No Known Home Meds 08/06/20 [History Confirmed 08/06/20 Last Taken Unknown] COURSE Hospital Course Hospital course: . Discharge diagnosis: . Time Spent with Patient Time attestation: Total time spent providing and/or coordinating discharge services: EXAM Constitutional Vitals: Temp Pulse Resp BP Pulse Ox 97.3 F 64 24 H 113/77 97 08/08/20 07:39 08/08/20 12:47 08/08/20 12:47 08/08/20 12:01 08/08/20 12:47 Discharge Data Data Completed and Pending Labs on day of discharge: Labs from last 24 hours 08/08/20 08/08/20 05:40 05:40 WBC 10.0 RBC 4.92 Hgb 13.7 Hct 43.1 MCV 87.6 MCH 27.8 MCHC 31.8 RDW 13.0 Plt Count 278 MPV 10.7 H Seg Neutrophils % 86 H Lymphocytes % 8 L Monocytes % (Manual) 4 Reactive Lymphocytes 2 Platelet Estimate Normal RBC Morphology Normal Sodium 139 Potassium 4.3 Chloride 103 Carbon Dioxide 26 Anion Gap 10.0 BUN 14 Creatinine 0.6 GFR Calculation 105 Glucose 181 H Uric Acid 4.7 Calcium 8.8 Phosphorus 2.8 Magnesium 2.5 Total Bilirubin 0.3 Direct Bilirubin < 0.2 GGT 103 H AST 31 ALT 23 Alkaline Phosphatase 58 Lactate Dehydrogenase 319 H Total Protein 6.6 Albumin 3.5 Globulin 3.1 Albumin/Globulin Ratio 1.1 Triglycerides 96 Discharge Plan Patient/Caregiver Discharge Instructions Activity: other Diet: Regular Diet Prescriptions: No Action No Known Home Meds RF: 0 Follow Up Plan Follow up with: No,PCP [Primary Care Provider] - Patient Disposition: [facility] Prognosis: Serious Rehab Potential: Serious I certify that the patient requires SNF services: No Overall status at discharge: patient is not back to baseline Discharge Orders: Discharge Order (Routine); Ordered 08/08/20 Ordered By: Joselito MORENO VTE Deep Vein Thrombosis/Pulmonary Embolism Present on Admission: No
[2020-08-08] MEDS ORDERED: ENOXAPARIN 40 MG/0.4 ML SYRINGE SQ SCH (21:00)
== END 2020-08-08 16:00 | disposition short-term general hospital (02) | DRG 177 ==
LOC: ED 14:49 → EDBD 21:57 → ICU 21:57
PROVIDERS: ADMIT Internal Medicine; ATTEND Internal Medicine